=== PATIENT | male | born 1960 | race American Indian/Alaskan Native ===

== ENCOUNTER 2020-11-01 13:26 | Emergency (ER) | payer BC ==
--- NOTE | 2020-11-01 13:57 | Event Note ---
ED Screening Note Date of service: 11/01/20 Time: 13:57 ED Screening Note: Patient complains of chest pain x2 days Also states decreased taste and smell No fever per patient This initial assessment/diagnostic orders/clinical plan/treatment(s) is/are subject to change based on patients health status, clinical progression and re- assessment by fellow clinical providers in the ED. Further treatment and workup at subsequent clinical providers discretion. Patient/guardian urged not to elope from the ED as their condition may be serious if not clinically assessed and managed. Initial orders include: Labs Chest x-ray EKG
[2020-11-01 14:32] LABS: Basophils % (Auto) 0.3 % (0.0-1.8); Hematocrit 39.4 % (35.5-45.6); Hemoglobin 12.9 gm/dl (11.8-15.2); Lymphocytes # (Auto) 1.3 K/mm3 (1.2-5.4); Lymphocytes % (Auto) 24.9 % (13.4-35.0); Mean Corpuscular HGB Conc 33 % (32-34); Monocytes # (Auto) 0.4 K/mm3 (0.0-0.8); Monocytes % (Auto) 7.8 % (0.0-7.3); Red Blood Count 5.85 M/mm3 (3.65-5.03); Red Cell Distribution Width 15.2 % (13.2-15.2)
[2020-11-01 14:37] LABS: Mean Corpuscular Volume 67 fl (84-94); Platelet Count 103 K/mm3 (140-440)
[2020-11-01 14:48] LABS: Alanine Aminotransferase 28 units/L (7-56); Albumin 3.7 g/dL (3.9-5); BUN/Creatinine Ratio 17; Blood Urea Nitrogen 19 mg/dL (9-20); Hemolysis Index 0
--- NOTE | 2020-11-01 15:02 | XRay Report ---
CHEST 2 VIEWS INDICATION / CLINICAL INFORMATION: Chest pain. COMPARISON: None available. FINDINGS: SUPPORT DEVICES: None. HEART / MEDIASTINUM: The heart size and pulmonary vasculature are normal. LUNGS / PLEURA: There is mild to moderate patchy multifocal areas of groundglass parenchymal opacity in the right mid to lower lung. There are few minimal similar areas of opacity in the left mid to low er lung laterally. No pleural effusion. No pneumothorax. ADDITIONAL FINDINGS: No significant additional findings. IMPRESSION: Mild to moderate patchy areas of groundglass parenchymal opacity in both lungs, right gre ater than left. Atypical causes of infection, including viral pneumonia, should be considered. Signer Name: Maxim Ortiz MD Signed: 11/01/2020 2:58 PM Workstation Name: [id number]
[2020-11-02] MEDS ORDERED: SODIUM CHLORIDE 0.9% 1000 ML 1,000 ML IV ONE (08:03)
[2020-11-02] MEDS ORDERED: dexAMETHasone 4 MG/ML VIAL IV ONE (08:04)
[2020-11-02] MEDS ORDERED: AZITHROMYCIN 500 MG in SODIUM CHLORIDE 0.9% 250ML 250 ML IV SCH (09:00)
--- NOTE | 2020-11-02 10:04 | Emergency Department Report ---
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 Patient complains of chest pain dry throat, body aches, chills, fatigue loss of appetite for 2 days. He denies fever vomiting no diarrhea no known sick contacts. Patient in no acute distress. -: days(s) (2) Location: chest Quality: aching Improves with: none Worsens with: none Associated Symptoms: chest pain, loss of appetite, malaise Treatments Prior to Arrival: none - Related Data Previous Rx's Medication Instructions Recorded Last Taken Type Amoxicillin [Amoxicillin TAB] 875 mg PO BID 10 Days #20 tablet 11/02/20 Unknown Rx Azithromycin [Zithromax TAB] 250 mg PO DAILY 4 Days #4 tab 11/02/20 Unknown Rx methylPREDNISolone [Medrol 4MG 4 mg PO DAILY #1 pkg 11/02/20 Unknown Rx DOSEPAK (21 tabs)] Allergies Allergy/AdvReac Type Severity Reaction Status Date / Time No Known Allergies Allergy Unverified 11/01/20 14:00 ED Review of Systems ROS: Stated complaint: HEADACHE/CHEST PAIN Other details as noted in HPI Comment: All other systems reviewed and negative Constitutional: no symptoms reported Respiratory: no symptoms reported Cardiovascular: as per HPI, chest pain (aching across his chest) Endocrine: no symptoms reported Gastrointestinal: as per HPI Musculoskeletal: as per HPI Skin: as per HPI Neurological: as per HPI Psychiatric: as per HPI ED Past Medical Hx - Past Medical History Previous Medical History?: Yes Hx Hypertension: Yes - Surgical History Past Surgical History?: Yes Hx Appendectomy: Yes - Social History Smoking Status: Never Smoker Substance Use Type: Alcohol - Medications Home Medications: Home Medications Medication Instructions Recorded Confirmed Last Taken Type Amoxicillin [Amoxicillin TAB] 875 mg PO BID 10 Days #20 tablet 11/02/20 Unknown Rx Azithromycin [Zithromax TAB] 250 mg PO DAILY 4 Days #4 tab 11/02/20 Unknown Rx methylPREDNISolone [Medrol 4MG 4 mg PO DAILY #1 pkg 11/02/20 Unknown Rx DOSEPAK (21 tabs)] ED Physical Exam - General Limitations: No Limitations General appearance: alert, in no apparent distress - Head Head exam: Present: atraumatic - Eye Eye exam: Present: normal appearance. Absent: conjunctival injection - ENT ENT exam: Present: normal exam, mucous membranes moist, TM's normal bilaterally - Neck Neck exam: Present: normal inspection, full ROM. Absent: lymphadenopathy - Respiratory Respiratory exam: Present: normal lung sounds bilaterally. Absent: respiratory distress, wheezes, rales, rhonchi, chest wall tenderness - Cardiovascular Cardiovascular Exam: Present: regular rate, normal heart sounds - GI/Abdominal GI/Abdominal exam: Present: soft. Absent: distended, tenderness - Extremities Exam Extremities exam: Present: normal inspection, normal capillary refill - Back Exam Back exam: Present: normal inspection - Neurological Exam Neurological exam: Present: alert, oriented X3 - Psychiatric Psychiatric exam: Present: normal affect - Skin Skin exam: Present: warm, dry, intact, normal color ED Course Vital Signs 11/01/20 11/02/20 11/02/20 13:56 07:16 09:01 Temperature 99.3 F 98.1 F Pulse Rate 89 78 Respiratory 20 16 18 Rate Blood Pressure 125/69 Blood Pressure 136/84 [Right] O2 Sat by Pulse 97 97 98 Oximetry - Reevaluation(s) Reevaluation #1: 11/02/20 10:05 Patient in no acute distress 11/02/20 11:10 Observed patient ambulating in the hallway O2 sat at the lowest was 94 and at the highest was 98% he is not diaphoretic he is not complaining of chest pain or shortness of breath ED Medical Decision Making - Lab Data Result diagrams: 11/01/20 14:05 11/01/20 14:05 - EKG Data EKG shows normal: sinus rhythm Rate: normal - EKG Data When compared to previous EKG there are: previous EKG unavailable Interpretation: no acute changes - Radiology Data Radiology results: report reviewed FINDINGS: SUPPORT DEVICES: None. HEART / MEDIASTINUM: The heart size and pulmonary vasculature are normal. LUNGS / PLEURA: There is mild to moderate patchy multifocal areas of groundglass parenchymal opacity in the right mid to lower lung. There are few minimal similar areas of opacity in the left mid to lower lung laterally. No pleural effusion. No pneumothorax. ADDITIONAL FINDINGS: No significant additional findings. IMPRESSION: Mild to moderate patchy areas of groundglass parenchymal opacity in both lungs, right greater than left. Atypical causes of infection, including viral pneumonia, should be considered. 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 Chest x-ray shows bilateral . pneumonia. EKG is sinus rhythm troponin is normal. Patient has Covid-like symptoms he is given a liter of IV fluids and 500 mg IV azithromycin. Patient able to walk around the emergency department without desaturation. Oxygen saturation 98% on room air. Discharge plan include azithromycin 250 mg p.o. x4 days, amoxicillin 875 twice daily x10 days, Medrol Dosepak. Patient also instructed and given pamphlet for Covid testing. Is also referred to Dr. Garcia for follow-up - Differential Diagnosis Covid-like symptoms viral pneumonia community-acquired pneumonia Critical Care Time: No Critical care attestation.: If time is entered above; I have spent that time in minutes in the direct care of this critically ill patient, excluding procedure time. ED Disposition Clinical Impression: Suspected COVID-19 virus infection Pneumonia Qualifiers: Pneumonia type: due to unspecified organism Laterality: bilateral Lung location: upper lobe of lung Qualified Code(s): J18.9 - Pneumonia, unspecified organism Disposition: - TO HOME OR SELFCARE Is pt being admited?: No Does the pt Need Aspirin: No Condition: Stable Instructions: COVID-19, Airborne Precautions, [id number], Community-Acquired Pneumonia, Adult, Bacterial Pneumonia (ED) Additional Instructions: You are to rest, drink increased amount of fluids your to self quarantine for at least 10 days. We believe you may have COVID-19 virus please refer to the list that I have given you and test as soon as possible. On Wednesday11/04/20 please follow-up with your primary care doctor or Dr. Garcia or return to the hospital for recheck. You may return to the hospital if you develop any shortness of breath any difficulty breathing or worsening symptoms that cannot be managed at home. chest xray results FINDINGS: SUPPORT DEVICES: None. HEART / MEDIASTINUM: The heart size and pulmonary vasculature are normal. LUNGS / PLEURA: There is mild to moderate patchy multifocal areas of groundglass parenchymal opacity in the right mid to lower lung. There are few minimal similar areas of opacity in the left mid to lower lung laterally. No pleural effusion. No pneumothorax. ADDITIONAL FINDINGS: No significant additional findings. IMPRESSION: Mild to moderate patchy areas of ground-glass parenchymal opacity in both lungs, right greater than left. Atypical causes of infection, including viral pneumonia, should be considered. Prescriptions: Amoxicillin [Amoxicillin TAB] 875 mg PO BID 10 Days #20 tablet methylPREDNISolone [Medrol 4MG DOSEPAK (21 tabs)] 4 mg PO DAILY #1 pkg Azithromycin [Zithromax TAB] 250 mg PO DAILY 4 Days #4 tab Referrals: PRIMARY CAREMD [Primary Care Provider] - 3-5 Days KAREN GARCIA MD [Staff Physician] - 3-5 Days Time of Disposition: 11:01
[2020-11-02 11:24] VITALS: BP 122/68
== END 2020-11-02 11:21 | disposition home or self-care (01) ==
LOC: ED 13:26
DX: J18.9 Pneumonia, unspecified organism (principal); Z20.828 Contact with and (suspected) exposure to other viral communicable diseases; I10 Essential (primary) hypertension; Z90.49 Acquired absence of other specified parts of digestive tract; Z79.2 Long term (current) use of antibiotics; Z79.899 Other long term (current) drug therapy
CPT/HCPCS: 36415; 71046; 80053; 84484; 85025; 93005; 96365; 96375; 99284; J0456; J1100; J7030; J7050